=== PATIENT | female | born 2000 | race Caucasian/White ===

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

== ENCOUNTER 2021-03-25 05:31 | Emergency (ER) | payer OTHER ==
[2021-03-25 05:36] VITALS: TEMP 98.6
[2021-03-25] MEDS ORDERED: ONDANSETRON 4 MG/2 ML VIAL IVP STA (05:46)
[2021-03-25] MEDS ORDERED: SODIUM CHLORIDE 0.9% 1,000 ML IV STA ×3 (05:46→06:40)
[2021-03-25] MEDS ORDERED: PANTOPRAZOLE 40 MG/10 ML VIAL IVP STA (05:46)
[2021-03-25] MEDS ORDERED: SODIUM CHLORIDE 0.9% 500 ML 500 ML IV STA (05:46)
[2021-03-25] MEDS ORDERED: KETOROLAC 15 MG/ML 1 ML VIAL IVP STA (05:47)
[2021-03-25] MEDS ORDERED: DICYCLOMINE 10 MG/ML 2 ML AMP IM STA (05:47)
--- NOTE | 2021-03-25 05:51 | ED ---
Nausea/Vomiting/Diarrhea HPI - General Source: patient, family, RN notes reviewed, old records reviewed Mode of arrival: ambulatory Limitations: no limitations - History of Present Illness MD complaint: nausea, vomiting, diarrhea, abdominal pain -: hour(s) (3) Description of Vomiting: watery, bilious Description of Diarrhea: mucous Associated Abdominal Pain: Yes Location: epigastric Radiation: none Severity: moderate Severity scale (1-10): 5 Quality: cramping Consistency: intermittent Improves with: none Worsens with: none Associated Symptoms: myalgias, loss of appetite, nausea/vomiting, weakness <El Stanley - Last Filed: 03/25/21 06:43> <Nahun García - Last Filed: 03/25/21 08:29> - General Chief complaint: Nausea/Vomiting/Diarrhea Stated complaint: Nausea, vomiting Time Seen by Provider: 03/25/21 05:46 - History of Present Illness Initial comments: This is a 20-year-old female to ER today for evaluation of persistent nausea vom iting. Patient is nausea vomiting and diarrhea for 3 days. Patient has inability to related to any current similar symptoms and has no family members with similar complaint. Patient denies any fevers. She does have some epigastric pain that is worse when she does vomit. Patient is no blood in her vomit or stool. Denies chance of she does have Implant. No other surgical history no medical history denies drugs or alcohol. No recent antibiotic use (El Stanley) - Related Data Home Medications Medication Instructions Recorded Confirmed No Known Home Medications 10/30/15 10/30/15 Allergies Allergy/AdvReac Type Severity Reaction Status Date / Time No Known Allergies Allergy Verified 03/25/21 05:36 Review of Systems ROS Other: All systems not noted in ROS Statement are negative. <El Stanley - Last Filed: 03/25/21 06:43> ROS Other: All systems not noted in ROS Statement are negative. <Nahun García - Last Filed: 03/25/21 08:29> ROS Statement: Those systems with pertinent positive or pertinent negative responses have been documented in the HPI. Past Medical History Past Medical History: No Reported History History of Any Multi-Drug Resistant Organisms: None Reported Past Surgical History: No Surgical Hx Reported Past Psychological History: No Psychological Hx Reported Smoking Status: Current some day smoker Past Alcohol Use History: None Reported Past Drug Use History: None Reported <El Stanley - Last Filed: 03/25/21 06:43> General Exam Limitations: no limitations General appearance: alert, in no apparent distress Head exam: Present: atraumatic, normocephalic, normal inspection Eye exam: Present: normal appearance, PERRL, EOMI. Absent: scleral icterus, conjunctival injection, periorbital swelling ENT exam: Present: normal exam, mucous membranes moist Neck exam: Present: normal inspection. Absent: tenderness, meningismus, lymphadenopathy Respiratory exam: Present: normal lung sounds bilaterally. Absent: respiratory distress, wheezes, rales, rhonchi, stridor Cardiovascular Exam: Present: normal rhythm, tachycardia, normal heart sounds. Absent: systolic murmur, diastolic murmur, rubs, gallop, clicks GI/Abdominal exam: Present: soft, normal bowel sounds. Absent: distended, tenderness, guarding, rebound, rigid Extremities exam: Present: normal inspection, full ROM, normal capillary refill. Absent: tenderness, pedal edema, joint swelling, calf tenderness Back exam: Present: normal inspection Neurological exam: Present: alert, oriented X3, CN II-XII intact Psychiatric exam: Present: normal affect, normal mood Skin exam: Present: warm, dry, intact, normal color. Absent: rash <El Stanley - Last Filed: 03/25/21 06:43> Course <El Stanley - Last Filed: 03/25/21 06:43> Vital Signs 03/25/21 03/25/21 03/25/21 05:32 06:18 06:58 Temperature 98.6 F Pulse Rate 122 H 76 86 Respiratory 22 18 18 Rate Blood Pressure 118/73 105/61 108/72 O2 Sat by Pulse 97 99 100 Oximetry 03/25/21 03/25/21 03/25/21 07:34 08:10 08:24 Temperature 98.6 F Pulse Rate 81 71 71 Respiratory 16 16 16 Rate Blood Pressure 122/63 106/76 106/76 O2 Sat by Pulse 97 97 97 Oximetry - Reevaluation(s) Reevaluation #1: 03/25/21 06:07 Medical records reviewed (El Stanley) Medical Decision Making - Lab Data Result diagrams: 03/25/21 05:57 03/25/21 05:57 <El Stanley - Last Filed: 03/25/21 06:43> - Lab Data Result diagrams: 03/25/21 05:57 03/25/21 05:57 - Radiology Data Radiology results: report reviewed (Computed tomography scan of the abdomen pelvis shows no acute process) <Nahun García - Last Filed: 03/25/21 08:29> - Medical Decision Making Patient reevaluated and reexamined by myself, Dr. García. Patient resting comfortably in bed. Abdomen soft and nontender. Patient updated on results. Patient is tolerating ice chips. (Nahun García) - Lab Data Lab Results 03/25/21 03/25/21 03/25/21 Range/Units 05:57 05:57 05:57 WBC 9.9 (4.0-11.0) k/uL RBC 4.89 (3.80-5.40) m/uL Hgb 15.3 (11.4-16.0) gm/dL Hct 42.5 (34.0-46.0) % MCV 86.8 (80.0-100.0) fL MCH 31.3 (25.0-35.0) pg MCHC 36.1 (31.0-37.0) g/dL RDW 12.0 (11.5-15.5) % Plt Count 239 (150-450) k/uL MPV 7.5 Neutrophils % 52 % Lymphocytes % 31 % Monocytes % 6 % Eosinophils % 8 % Basophils % 1 % Neutrophils # 5.1 (1.3-7.7) k/uL Lymphocytes # 3.1 (1.0-4.8) k/uL Monocytes # 0.6 (0-1.0) k/uL Eosinophils # 0.8 H (0-0.7) k/uL Basophils # 0.1 (0-0.2) k/uL Sodium 139 (137-145) mmol/L Potassium 3.8 (3.5-5.1) mmol/L Chloride 105 (98-107) mmol/L Carbon Dioxide 21 L (22-30) mmol/L Anion Gap 13 mmol/L BUN 13 (7-17) mg/dL Creatinine 0.70 (0.52-1.04) mg/dL Est GFR (CKD-EPI)AfAm >90 (>60 ml/min/1.73 sqM) Est GFR (CKD-EPI)NonAf >90 (>60 ml/min/1.73 sqM) Glucose 95 (74-99) mg/dL Plasma Lactic Acid Bo (0.7-2.0) mmol/L Calcium 10.0 (8.4-10.2) mg/dL Phosphorus 4.2 (2.5-4.5) mg/dL Magnesium 2.0 (1.6-2.3) mg/dL Total Bilirubin 1.0 (0.2-1.3) mg/dL AST 28 (14-36) U/L ALT 18 (4-34) U/L Alkaline Phosphatase 86 (38-126) U/L Creatine Kinase 380 H (30-135) U/L Total Protein 8.0 (6.3-8.2) g/dL Albumin 4.9 (3.5-5.0) g/dL Lipase (23-300) U/L Urine Color Yellow Urine Appearance Cloudy H (Clear) Urine pH 5.5 (5.0-8.0) Ur Specific [place] 1.030 (1.001-1.035) Urine Protein Trace H (Negative) Urine Glucose (UA) Negative (Negative) Urine Ketones 2+ H (Negative) Urine Blood Negative (Negative) Urine Nitrite Negative (Negative) Urine Bilirubin 1+ H (Negative) Urine Urobilinogen 2.0 (<2.0) mg/dL Ur Leukocyte Esterase Small H (Negative) Urine RBC 2 (0-5) /hpf Urine WBC 5 (0-5) /hpf Ur Squamous Epith Cells 6 H (0-4) /hpf Amorphous Sediment Occasional H (None) /hpf Hyaline Casts 1 (0-2) /lpf Urine Mucus Many H (None) /hpf Urine HCG, Qual (Not Detectd) C. difficile Tox (PCR) 03/25/21 03/25/21 03/25/21 Range/Units 05:57 05:57 05:57 WBC (4.0-11.0) k/uL RBC (3.80-5.40) m/uL Hgb (11.4-16.0) gm/dL Hct (34.0-46.0) % MCV (80.0-100.0) fL MCH (25.0-35.0) pg MCHC (31.0-37.0) g/dL RDW (11.5-15.5) % Plt Count (150-450) k/uL MPV Neutrophils % % Lymphocytes % % Monocytes % % Eosinophils % % Basophils % % Neutrophils # (1.3-7.7) k/uL Lymphocytes # (1.0-4.8) k/uL Monocytes # (0-1.0) k/uL Eosinophils # (0-0.7) k/uL Basophils # (0-0.2) k/uL Sodium (137-145) mmol/L Potassium (3.5-5.1) mmol/L Chloride (98-107) mmol/L Carbon Dioxide (22-30) mmol/L Anion Gap mmol/L BUN (7-17) mg/dL Creatinine (0.52-1.04) mg/dL Est GFR (CKD-EPI)AfAm (>60 ml/min/1.73 sqM) Est GFR (CKD-EPI)NonAf (>60 ml/min/1.73 sqM) Glucose (74-99) mg/dL Plasma Lactic Acid Bo 1.0 (0.7-2.0) mmol/L Calcium (8.4-10.2) mg/dL Phosphorus (2.5-4.5) mg/dL Magnesium (1.6-2.3) mg/dL Total Bilirubin (0.2-1.3) mg/dL AST (14-36) U/L ALT (4-34) U/L Alkaline Phosphatase (38-126) U/L Creatine Kinase (30-135) U/L Total Protein (6.3-8.2) g/dL Albumin (3.5-5.0) g/dL Lipase (23-300) U/L Urine Color Urine Appearance (Clear) Urine pH (5.0-8.0) Ur Specific [place] (1.001-1.035) Urine Protein (Negative) Urine Glucose (UA) (Negative) Urine Ketones (Negative) Urine Blood (Negative) Urine Nitrite (Negative) Urine Bilirubin (Negative) Urine Urobilinogen (<2.0) mg/dL Ur Leukocyte Esterase (Negative) Urine RBC (0-5) /hpf Urine WBC (0-5) /hpf Ur Squamous Epith Cells (0-4) /hpf Amorphous Sediment (None) /hpf Hyaline Casts (0-2) /lpf Urine Mucus (None) /hpf Urine HCG, Qual Not Detected (Not Detectd) C. difficile Tox (PCR) Not Detected 03/25/21 Range/Units 05:57 WBC (4.0-11.0) k/uL RBC (3.80-5.40) m/uL Hgb (11.4-16.0) gm/dL Hct (34.0-46.0) % MCV (80.0-100.0) fL MCH (25.0-35.0) pg MCHC (31.0-37.0) g/dL RDW (11.5-15.5) % Plt Count (150-450) k/uL MPV Neutrophils % % Lymphocytes % % Monocytes % % Eosinophils % % Basophils % % Neutrophils # (1.3-7.7) k/uL Lymphocytes # (1.0-4.8) k/uL Monocytes # (0-1.0) k/uL Eosinophils # (0-0.7) k/uL Basophils # (0-0.2) k/uL Sodium (137-145) mmol/L Potassium (3.5-5.1) mmol/L Chloride (98-107) mmol/L Carbon Dioxide (22-30) mmol/L Anion Gap mmol/L BUN (7-17) mg/dL Creatinine (0.52-1.04) mg/dL Est GFR (CKD-EPI)AfAm (>60 ml/min/1.73 sqM) Est GFR (CKD-EPI)NonAf (>60 ml/min/1.73 sqM) Glucose (74-99) mg/dL Plasma Lactic Acid Bo (0.7-2.0) mmol/L Calcium (8.4-10.2) mg/dL Phosphorus (2.5-4.5) mg/dL Magnesium (1.6-2.3) mg/dL Total Bilirubin (0.2-1.3) mg/dL AST (14-36) U/L ALT (4-34) U/L Alkaline Phosphatase (38-126) U/L Creatine Kinase (30-135) U/L Total Protein (6.3-8.2) g/dL Albumin (3.5-5.0) g/dL Lipase 58 (23-300) U/L Urine Color Urine Appearance (Clear) Urine pH (5.0-8.0) Ur Specific [place] (1.001-1.035) Urine Protein (Negative) Urine Glucose (UA) (Negative) Urine Ketones (Negative) Urine Blood (Negative) Urine Nitrite (Negative) Urine Bilirubin (Negative) Urine Urobilinogen (<2.0) mg/dL Ur Leukocyte Esterase (Negative) Urine RBC (0-5) /hpf Urine WBC (0-5) /hpf Ur Squamous Epith Cells (0-4) /hpf Amorphous Sediment (None) /hpf Hyaline Casts (0-2) /lpf Urine Mucus (None) /hpf Urine HCG, Qual (Not Detectd) C. difficile Tox (PCR) Disposition Is patient prescribed a controlled substance at d/c from ED?: No <El Stanley - Last Filed: 03/25/21 06:43> Is patient prescribed a controlled substance at d/c from ED?: No <Nahun García - Last Filed: 03/25/21 08:29> Clinical Impression: Dehydration, Gastroenteritis Disposition: HOME SELF-CARE Condition: Good Instructions (If sedation given, give patient instructions): Acute Nausea and Vomiting (ED), Acute Diarrhea (ED) Referrals: None,Stated [Primary Care Provider] - 1-2 days
[2021-03-25 06:23] LABS: Basophils # (A) 0.1 k/uL (0-0.2); Basophils % (A) 1 %; Eosinophils # (A) 0.8 k/uL (0-0.7); Eosinophils % (A) 8 %; HCT 42.5 % (34.0-46.0); HGB 15.3 gm/dL (11.4-16.0); Lymphocytes # (A) 3.1 k/uL (1.0-4.8); Lymphocytes % (A) 31 %; MCH 31.3 pg (25.0-35.0); MCHC 36.1 g/dL (31.0-37.0); MCV 86.8 fL (80.0-100.0); Mean Platelet Volume 7.5; Monocytes # (A) 0.6 k/uL (0-1.0); Monocytes % (A) 6 %; Neutrophils # (A) 5.1 k/uL (1.3-7.7); Neutrophils % (A) 52 %; Platelet Count 239 k/uL (150-450); RBC 4.89 m/uL (3.80-5.40); WBC 9.9 k/uL (4.0-11.0)
[2021-03-25 06:35] LABS: Amorphous Sediment,Urine Occasional /hpf; Appearance,Urine Cloudy (Clear); Bilirubin,Urine 1+ (Negative); Blood,Urine Negative (Negative); Color,Urine Yellow; Glucose,Urine (UA) Negative (Negative); Hyaline Casts,Urine 1 /lpf (0-2); Ketones,Urine 2+ (Negative); Leukocyte Esterase,Urine Small (Negative); Mucus,Urine Many /hpf; Nitrite,Urine Negative (Negative); PH, Urine 5.5 (5.0-8.0); Protein,Urine Trace (Negative); RBC,Urine 2 /hpf (0-5); Squamous Epithelial Cell,Urine 6 /hpf (0-4); WBC,Urine 5 /hpf (0-5)
[2021-03-25 06:40] LABS: ALT 18 U/L (4-34); AST 28 U/L (14-36); African American GFR (CKD) >90 (>60 ml/min/1.73 sqM); Albumin 4.9 g/dL (3.5-5.0); Alkaline Phosphatase 86 U/L (38-126); Anion Gap 13 mmol/L; Blood Urea Nitrogen 13 mg/dL (7-17); Carbon Dioxide 21 mmol/L (22-30); Chloride 105 mmol/L (98-107); Creatine Kinase 380 U/L (30-135); Glucose 95 mg/dL (74-99); Non-African American GFR(CKD) >90 (>60 ml/min/1.73 sqM); Phosphorus 4.2 mg/dL (2.5-4.5); Potassium 3.8 mmol/L (3.5-5.1); Sodium 139 mmol/L (137-145)
[2021-03-25] MEDS ORDERED: DIPHENOX-ATROP STARTER PACK 8 TAB BTL PO STA (06:42)
[2021-03-25] MEDS ORDERED: ONDANSETRON ODT 4 MG TAB PO STA (06:42)
[2021-03-25] MEDS ORDERED: ONDANSETRON 4 MG ODT STARTER PACK 2 TAB BTL PO STA (06:43)
[2021-03-25] MEDS ORDERED: MORPHINE SULFATE 4 MG/ML SYRINGE IVP STA (06:47)
[2021-03-25 07:35] VITALS: RESP 16
--- NOTE | 2021-03-25 07:51 | CT ---
EXAMINATION TYPE: CT abdomen pelvis w con DATE OF EXAM: 03/25/2021 HISTORY: Upper abdominal pain with nausea vomiting and diarrhea for [address] DLP: 633.3mGycm Automated Exposure Control for Dose Reduction was Utilized. CONTRAST: CT scan of the abdomen and pelvis is performed without oral but with IV Contrast, patient injected wi th 100 mL of Isovue 300. COMPARISON: None. FINDINGS: LUNG BASES: No significant abnormality is appreciated. LIVER/GB: No significant abnormality is appreciated. PANCREAS: No significant abnormality is seen. SPLEEN: No significant abnormality is seen. ADRENALS: No significant abnormality is seen. KIDNEYS: No significant abnormality is seen. BOWEL: Suboptimal evaluation of bowel without enteric contrast. No suspicious small or large bowel di latation is seen. Stomach is poorly distended and suboptimally evaluated. Low-lying cecum into the ri ght pelvis noted. UTERUS/ADNEXA: Anteverted uterus projects to left of midline. Both ovaries seen and within normal de leon its in size. LYMPH NODES: No greater than 1cm abdominal or pelvic lymph nodes are appreciated. OSSEOUS STRUCTURES: No significant abnormality is seen. OTHER: No significant additional abnormality is seen. IMPRESSION: No bowel obstruction. No acute finding is identified.
[2021-03-25 08:11] VITALS: BP 106/76; PULSE 71
== END 2021-03-25 08:25 | disposition home or self-care (01) ==
LOC: EC 05:31
DX: E86.0 Dehydration (principal); K52.9 Noninfective gastroenteritis and colitis, unspecified; F17.200 Nicotine dependence, unspecified, uncomplicated
CPT/HCPCS: 36415; 80053; 82550; 83605; 83690; 83735; 84100; 85025; 81001; 81025; 87493; 74177; 99284; 96374; 96375; 96372; 96361; J2270; J0500; J2405; J1885; S0119; C9113; Q9967

== ENCOUNTER 2021-10-01 00:55 | Inpatient (IN) | payer MEDICAID, OTHER ==
[2021-10-01 02:02] LABS: Appearance,Urine Clear (Clear); Bilirubin,Urine Negative (Negative); Blood,Urine Negative (Negative); Color,Urine Colorless; Glucose,Urine (UA) Negative (Negative); Ketones,Urine Negative (Negative); Leukocyte Esterase,Urine Negative (Negative); Nitrite,Urine Negative (Negative); Protein,Urine Negative (Negative); Specific Gravity,Urine 1.005 (1.001-1.035); Urobilinogen,Urine <2.0 mg/dL (<2.0)
--- NOTE | 2021-10-01 02:07 | ED ---
Overdose HPI - General Stated Complaint: Overdose Time Seen by Provider: 10/01/21 01:09 Source: patient Mode of arrival: ambulatory - History of Present Illness Initial Comments: This patient is a 21-year-old woman who presents to be evaluated after taking a total of 9 tablets 0.25 mg Xanax. The patient states that she had just one to be unconscious. She states that she has been depressed and she just feels better when she is sleeping. The patient denies suicidal ideation. She does state she has had some depression that she doesn't seem to be doing much in her life right now. Complaint: intentional overdose -: hour(s) Intent: want to go to sleep How Overdose Was Discovered: called family/friend Context: Intentional Overdose: other Associated Symptoms: depression Treatments Prior to Arrival: none - Related Data Home Medications Medication Instructions Recorded Confirmed No Known Home Medications 10/30/15 10/30/15 Allergies Allergy/AdvReac Type Severity Reaction Status Date / Time No Known Allergies Allergy Verified 10/01/21 01:04 Review of Systems ROS Statement: Those systems with pertinent positive or pertinent negative responses have been documented in the HPI. ROS Other: All systems not noted in ROS Statement are negative. Constitutional: Denies: fever Respiratory: Denies: cough, dyspnea Cardiovascular: Denies: chest pain, palpitations, syncope Gastrointestinal: Denies: abdominal pain, nausea, vomiting, diarrhea Genitourinary: Denies: dysuria, hematuria, abnormal menses Musculoskeletal: Denies: back pain Skin: Denies: rash Neurological: Denies: headache, weakness Psychiatric: Reports: depression. Denies: auditory hallucinations, visual hallucinations, homicidal thoughts, suicidal thoughts Past Medical History Past Medical History: No Reported History History of Any Multi-Drug Resistant Organisms: None Reported Past Surgical History: No Surgical Hx Reported Past Psychological History: Anxiety, Depression, Panic Disorder Smoking Status: Current some day smoker Past Alcohol Use History: None Reported Past Drug Use History: None Reported General Exam General appearance: alert, in no apparent distress Head exam: Present: atraumatic, normocephalic Eye exam: Present: normal appearance, PERRL. Absent: scleral icterus, conjunctival injection ENT exam: Present: normal oropharynx, mucous membranes moist Neck exam: Present: normal inspection Respiratory exam: Present: normal lung sounds bilaterally. Absent: respiratory distress, wheezes, rales, rhonchi, stridor Cardiovascular Exam: Present: regular rate, normal rhythm, normal heart sounds. Absent: systolic murmur, diastolic murmur, rubs, gallop GI/Abdominal exam: Present: soft. Absent: distended, tenderness, guarding, rebound, rigid, mass, pulsatile mass Extremities exam: Present: normal inspection, normal capillary refill. Absent: pedal edema, calf tenderness Back exam: Present: normal inspection. Absent: CVA tenderness (R), CVA tenderness (L) Neurological exam: Present: alert Psychiatric exam: Present: depressed. Absent: agitated, anxious, flat affect, manic, homicidal ideation, suicidal ideation Skin exam: Present: warm, dry, intact, normal color. Absent: rash Course Vital Signs 10/01/21 01:04 Temperature 98.5 F Pulse Rate 102 H Respiratory 15 Rate Blood Pressure 119/79 O2 Sat by Pulse 98 Oximetry Medical Decision Making - Lab Data Lab Results 10/01/21 10/01/21 Range/Units 01:19 01:19 Urine Color Colorless Urine Appearance Clear (Clear) Urine pH 7.0 (5.0-8.0) Ur Specific [place] 1.005 (1.001-1.035) Urine Protein Negative (Negative) Urine Glucose (UA) Negative (Negative) Urine Ketones Negative (Negative) Urine Blood Negative (Negative) Urine Nitrite Negative (Negative) Urine Bilirubin Negative (Negative) Urine Urobilinogen <2.0 (<2.0) mg/dL Ur Leukocyte Esterase Negative (Negative) Urine HCG, Qual Not Detected (Not Detectd) Disposition Referrals: Jaqueline Johnston MD [Primary Care Provider] - 1-2 days
[2021-10-01 02:40] LABS: Basophils % (A) 0 %; Eosinophils % (A) 0 %; HGB 13.7 gm/dL (11.4-16.0); Lymphocytes # (A) 1.1 k/uL (1.0-4.8); Lymphocytes % (A) 22 %; MCH 31.1 pg (25.0-35.0); MCHC 33.5 g/dL (31.0-37.0); MCV 92.8 fL (80.0-100.0); Mean Platelet Volume 7.2; Monocytes # (A) 0.4 k/uL (0-1.0); Monocytes % (A) 8 %; Neutrophils # (A) 3.3 k/uL (1.3-7.7); Neutrophils % (A) 67 %; Platelet Count 171 k/uL (150-450); RBC 4.42 m/uL (3.80-5.40); RDW 12.8 % (11.5-15.5)
[2021-10-01 02:56] LABS: ALT 13 U/L (4-34); AST 19 U/L (14-36); Acetaminophen <10.0 ug/mL; African American GFR (CKD) >90 (>60 ml/min/1.73 sqM); Albumin 4.1 g/dL (3.5-5.0); Alkaline Phosphatase 56 U/L (38-126); Anion Gap 9 mmol/L; Blood Urea Nitrogen 11 mg/dL (7-17); Calcium 9.2 mg/dL (8.4-10.2); Carbon Dioxide 23 mmol/L (22-30); Chloride 104 mmol/L (98-107); Glucose 92 mg/dL (74-99); Non-African American GFR(CKD) >90 (>60 ml/min/1.73 sqM); Potassium 3.7 mmol/L (3.5-5.1); Sodium 136 mmol/L (137-145); Total Bilirubin 0.4 mg/dL (0.2-1.3); Total Protein 6.9 g/dL (6.3-8.2)
[2021-10-01] MEDS ORDERED: MAGNESIUM HYDROXIDE 2,400 MG/10 ML CUP PO PRN (05:35)
[2021-10-01] MEDS ORDERED: ACETAMINOPHEN TAB 325 MG TAB PO PRN (05:35)
[2021-10-01] MEDS ORDERED: MAG HYDROX/AL HYDROX/SIMETH 30 ML CUP PO PRN (05:35)
[2021-10-01 06:07] LABS: Amphetamine Screen,Urine Not Detected (NotDetected); Barbiturate Screen,Urine Not Detected (NotDetected); Benzodiazepines Screen,Urine Detected (NotDetected); Cocaine Screen,Urine Not Detected (NotDetected); Methadone Screen, Urine Not Detected (NotDetected); Opiate Screen,Urine Not Detected (NotDetected); Oxycodone Screen, Urine Not Detected (NotDetected); Phencyclidine Screen,Urine Not Detected (NotDetected); Tricyclic Antidepressant,Urine Not Detected (NotDetected); Urn Cannabinoid Scrn Detected (NotDetected)
--- NOTE | 2021-10-01 11:19 | P.MDCNMH ---
History of Present Illness H&P Date: 10/01/21 HISTORY OF PRESENT ILLNESS This is a 21-year-old female patient of Dr. Johnston usually follows with [facility] in the office with PMH of depression and anxiety disorder, active vein pain and daily marijuana use. Patient denies having any previous medical history. Dates that she follows with [facility] and sees her psychiatrist every 6-8 weeks and counselor every other week. She states she is not happy with her [employer] and does not want to go there anymore. She also gives history that she is currently living with her [id number] and her sis ter-in-law's . She had an argument with a friend and had stated "this is the last time you'll hear from me." She also states that she took 9 Xanax 0.5 mg but denies being suicidal. Patient presented to [facility] emergency for evaluation. She was found to be afebrile, heart rate 102, pressure 119/79, pulse ox 90% on room air. CBC and CMP unremarkable. Urinalysis unremarkable. HCG nondetected. Urine drug screen was positive for benzodiazepines and marijuana. Acetaminophen level less than 10. Coronavirus PCR not detected. Patient is seen today on the mental health unit. Patient denies any medical concerns and she also denies that she is suicidal. REVIEW OF SYSTEMS Constitutional: No fever, no chills, no night sweats. No weight change. No weakness, fatigue or lethargy. No daytime sleepiness. EENT: No headache. No blurred vision or double vision, no loss of vision. No loss of Hearing, no ringing in the ears, no dizziness. No nasal drainage or congestion. No epistaxis. No sore throat. Lungs: No shortness of breath, cough, no sputum production. No wheezing. Cardiovascular: No chest pain, no lower extremity edema. No palpitations. No paroxysmal nocturnal dyspnea. No orthopnea. No lightheadedness or dizziness. No syncopal episodes. Abdominal: No abdominal pain. No nausea, vomiting. No diarrhea. No constipati on. No bloody or tarry stools. No loss of appetite. Genitourinary: No dysuria, increased frequency, urgency. No urinary retention. Musculoskeletal: No myalgias. No muscle weakness, no gait dysfunction, no frequent falls. No back pain. No neck pain. Integumentary: No wounds, no lesions. No rash or pruritus. No unusual bruising. No change in hair or nails. Neurologic: No aphasia. No facial droop. No change in mentation. No head injury. No headache. No paralysis. No paresthesia. Psychiatric: History of depression. History of anxiety. No mood swings. Endocrine: No abnormal blood sugars. No weight change. SOCIAL HISTORY Patient denies use of tobacco but does Vape every day Lantus smokes marijuana every day. She denies any other drug use. She sometimes drinks alcohol. 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 She does not have any children. She lives with her [id number] and her [id number]'s . FAMILY HISTORY Mother is alive in her 40s with no major medical problems. Father is alive in his 40s with history of asthma. Patient has 3 siblings and one brother has diabetes. PHYSICAL EXAMINATION Gen: This is a 21-year-old female. Patient is cooperative. She has flat affect, makes eye contact. She does not appear to be in any acute dist ress. HEENT: Head is atraumatic, normocephalic. Pupils equal, round. Sclerae is anicteric. NECK: Supple. No JVD. No lymphadenopathy. No thyromegaly. LUNGS: Clear to auscultation. No wheezes or rhonchi. No intercostal retractions. HEART: Regular rate and rhythm. No murmur. ABDOMEN: Soft. Bowel sounds are present. No masses. No tenderness. EXTREMITIES: No pedal edema. No calf tenderness. NEUROLOGICAL: Patient is awake, alert and oriented x3. Cranial nerves 2 through 12 are grossly intact. ASSESSMENT AND PLAN 1. Overdose with 9 Xanax 0.5 mg, medically stable. 2. Recurrent depression and generalized anxiety disorder. Continue plan per psychiatry. 3. Daily vaping and daily marijuana use. 4. COVID-19 testing negative. Patient has been hospitalized during a pandemic. DISCHARGE PLAN Home. Follow-up with Dr. Johnston in 1 week after discharge from the mental health unit. Impression and plan of care have been directed as dictated by the signing physician. Asiha Cates nurse practitioner acting as scribe for signing physician. Past Medical History Past Medical History: No Reported History History of Any Multi-Drug Resistant Organisms: None Reported Past Surgical History: No Surgical Hx Reported Past Psychological History: Anxiety, Depression, Panic Disorder Smoking Status: Never smoker Past Alcohol Use History: None Reported Past Drug Use History: Marijuana Medications and Allergies Home Medications Medication Instructions Recorded Confirmed Type ALPRAZolam [Xanax] 0.25 mg PO BID PRN 10/01/21 10/01/21 History Ethinyl Estradiol/Drospirenone 1 tab PO DAILY 10/01/21 10/01/21 History [Leslye 28 Tablet] FLUoxetine HCL [PROzac] 40 mg PO HS 10/01/21 10/01/21 History busPIRone HCl [Buspar] 10 mg PO BID 10/01/21 10/01/21 History Allergies Allergy/AdvReac Type Severity Reaction Status Date / Time No Known Allergies Allergy Verified 10/01/21 05:38 Physical Exam Vitals: Vital Signs Temp Pulse Pulse Resp BP BP Pulse Ox 10/01/21 05:41 97.6 F 71 14 104/57 97 10/01/21 04:31 77 20 104/71 98 10/01/21 01:04 98.5 F 102 H 15 119/79 98 Intake and Output 09/30/21 10/01/21 10/01/21 22:59 06:59 14:59 Other: Weight 55.792 kg Cranial Nerve Examination - Cranial Nerves Cranial Nerve I- Olfactory: Intact () Cranial Nerve II- Optic: Intact () Cranial Nerve III- Oculomotor: Intact () Cranial Nerve IV- Trochlear: Intact () Cranial Nerve V- Trigeminal: Intact () Cranial Nerve - Abducens: Intact () Cranial Nerve VII- Facial: Intact () Cranial Nerve VIII- Auditory: Intact Cranial Nerve IX- Glossopharyngeal: Intact Cranial Nerve X- Vagus: Intact Cranial Nerve XI- Accessory: Intact Cranial Nerve XII- Hypoglossal: Intact Results CBC & Chem 7: 10/01/21 02:16 10/01/21 02:16 Labs: Abnormal Lab Results - Last 24 Hours (Table) 10/01/21 10/01/21 Range/Units 01:30 02:16 Sodium 136 L (137-145) mmol/L U Benzodiazepines Scrn Detected H (NotDetected) U Marijuana (THC) Screen Detected H (NotDetected)
--- NOTE | 2021-10-01 14:11 | P.HP ---
Psychiatric H&P - . H&P Date: 10/01/21 History & Physical: Allergies Allergy/AdvReac Type Severity Reaction Status Date / Time No Known Allergies Allergy Verified 10/01/21 05:38 Vital Signs Temp 97.6 F 10/01/21 05:41 Pulse 71 10/01/21 05:41 Resp 14 10/01/21 05:41 BP 104/57 10/01/21 05:41 Pulse Ox 97 10/01/21 05:41 Intake & Output 09/30/21 10/01/21 10/01/21 18:59 06:59 18:59 Weight 55.792 kg Laboratory Last Values WBC 5.0 k/uL (4.0-11.0) 10/01/21 02:16 RBC 4.42 m/uL (3.80-5.40) 10/01/21 02:16 Hgb 13.7 gm/dL (11.4-16.0) 10/01/21 02:16 Hct 41.0 % (34.0-46.0) 10/01/21 02:16 MCV 92.8 fL (80.0-100.0) 10/01/21 02:16 MCH 31.1 pg (25.0-35.0) 10/01/21 02:16 MCHC 33.5 g/dL (31.0-37.0) 10/01/21 02:16 RDW 12.8 % (11.5-15.5) 10/01/21 02:16 Plt Count 171 k/uL (150-450) 10/01/21 02:16 MPV 7.2 10/01/21 02:16 Neutrophils % 67 % 10/01/21 02:16 Lymphocytes % 22 % 10/01/21 02:16 Monocytes % 8 % 10/01/21 02:16 Eosinophils % 0 % 10/01/21 02:16 Basophils % 0 % 10/01/21 02:16 Neutrophils # 3.3 k/uL (1.3-7.7) 10/01/21 02:16 Lymphocytes # 1.1 k/uL (1.0-4.8) 10/01/21 02:16 Monocytes # 0.4 k/uL (0-1.0) 10/01/21 02:16 Eosinophils # 0.0 k/uL (0-0.7) 10/01/21 02:16 Basophils # 0.0 k/uL (0-0.2) 10/01/21 02:16 Sodium 136 mmol/L (137-145) L 10/01/21 02:16 Potassium 3.7 mmol/L (3.5-5.1) 10/01/21 02:16 Chloride 104 mmol/L (98-107) 10/01/21 02:16 Carbon Dioxide 23 mmol/L (22-30) 10/01/21 02:16 Anion Gap 9 mmol/L 10/01/21 02:16 BUN 11 mg/dL (7-17) 10/01/21 02:16 Creatinine 0.59 mg/dL (0.52-1.04) 10/01/21 02:16 Est GFR (CKD-EPI)AfAm >90 (>60 ml/min/1.73 sqM) 10/01/21 02:16 Est GFR (CKD-EPI)NonAf >90 (>60 ml/min/1.73 sqM) 10/01/21 02:16 Glucose 92 mg/dL (74-99) 10/01/21 02:16 Calcium 9.2 mg/dL (8.4-10.2) 10/01/21 02:16 Total Bilirubin 0.4 mg/dL (0.2-1.3) 10/01/21 02:16 AST 19 U/L (14-36) 10/01/21 02:16 ALT 13 U/L (4-34) 10/01/21 02:16 Alkaline Phosphatase 56 U/L (38-126) 10/01/21 02:16 Total Protein 6.9 g/dL (6.3-8.2) 10/01/21 02:16 Albumin 4.1 g/dL (3.5-5.0) 10/01/21 02:16 Urine Color Colorless 10/01/21 01:19 Urine Appearance Clear (Clear) 10/01/21 01:19 Urine pH 7.0 (5.0-8.0) 10/01/21 01:19 Ur Specific [place] 1.005 (1.001-1.035) 10/01/21 01:19 Urine Protein Negative (Negative) 10/01/21 01:19 Urine Glucose (UA) Negative (Negative) 10/01/21 01:19 Urine Ketones Negative (Negative) 10/01/21 01:19 Urine Blood Negative (Negative) 10/01/21 01:19 Urine Nitrite Negative (Negative) 10/01/21 01:19 Urine Bilirubin Negative (Negative) 10/01/21 01:19 Urine Urobilinogen <2.0 mg/dL (<2.0) 10/01/21 01:19 Ur Leukocyte Esterase Negative (Negative) 10/01/21 01:19 Urine HCG, Qual Not Detected (Not Detectd) 10/01/21 01:19 Urine Opiates Screen Not Detected (NotDetected) 10/01/21 01:30 Ur Oxycodone Screen Not Detected (NotDetected) 10/01/21 01:30 Urine Methadone Screen Not Detected (NotDetected) 10/01/21 01:30 Ur Propoxyphene Screen Not Detected (NotDetected) 10/01/21 01:30 Acetaminophen <10.0 ug/mL 10/01/21 02:16 Ur Barbiturates Screen Not Detected (NotDetected) 10/01/21 01:30 U Tricyclic Antidepress Not Detected (NotDetected) 10/01/21 01:30 Ur Phencyclidine Scrn Not Detected (NotDetected) 10/01/21 01:30 Ur Amphetamines Screen Not Detected (NotDetected) 10/01/21 01:30 U Methamphetamines Scrn Not Detected (NotDetected) 10/01/21 01:30 U Benzodiazepines Scrn Detected (NotDetected) H 10/01/21 01:30 Urine Cocaine Screen Not Detected (NotDetected) 10/01/21 01:30 U Marijuana (THC) Screen Detected (NotDetected) H 10/01/21 01:30 Coronavirus (PCR) Not Detected (Not Detectd) 10/01/21 04:30 10/01/21 14:05 IDENTIFYING DATA: Patient is a 21-year-old female, she currently lives with her fianc's family has no kids and 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 This apparently was a suicide attempt. Patient was petitioned by her friend who expressed concerned about patient's safety and depression and suicidal thoughts. Patient was admitted involuntarily however signed voluntary on the unit. She appeared fairly constricted and had a depressed affect. She states that she is being prescribed Xanax and overdosed on it. She states that she's been feeling very overwhelmed and is not liking her job. She states that she feels "numb" and was describing depression and significant anxiety. She states that she has been on medications in the past including Zoloft and Prozac. She states that she overdosed on the medications and then extended her friend telling her "this will be the last time we'll hear from me" and then went to sleep. She states that her friend came over and tried to wake her up and called the ambulance. She states that her sleep has been fair however appetite has been poor. Patient denies any homicidal ideations intent or plan. She is admitting to ongoing suicidal thoughts however no intent or plan. At this time patient denies any auditory or visual hallucinations. Patient denies any flight of ideas racing thoughts and increased in goal directed behavior. Patient admits to using marijuana daily. She denies any other recreational drug use. PAST PSYCHIATRIC HISTORY: Patient states that she has a history of depression and anxiety. She claims that she is previously been on Zoloft, Prozac and BuSpar in the past. Patient denies any previous psychiatric hospitalizations. She claims that she follows up at [facility] with a nurse practitioner there. She claims that she did have an overdose suicide attempt when she is 16 years old. PMH:denies ALLERGIES: as per EMR CHEMICAL DEPENDENCY HISTORY: as per HPI FAMILY PSYCHIATRIC/SUBSTANCE USE HISTORY: States that her mother has depression and anxiety in father has some form of mental illness. SOCIAL HISTORY: Patient was born and raised in [facility] [facility] [place]. She states that she completed high school. She claims that she does not have a legal history. She states that she currently works at [employer] as a nurse's aide. She does not have any kids. She lives with her fibhargav's family in a house. MENTAL STATUS EXAM: General Appearance: Patient appears to be thin, unkempt hair, stated age is alert, directable, and attempts to cooperate. Patient appears to have poor hygiene and grooming. Behavior: Patient is seated without any agitated behavior. Constricted, affect. Speech: Patient's speech is fluent and nonpressured. Soft tone. [place] Mood/Affect: Patient reports their mood is depressed and anxious, affect is congruent and constricted. Suicidality/Homicidality: Patient denies having any homicidal ideation intent or plan. And admits to suicidal thoughts however no intent or plan. Perceptions: Patient denies any visual hallucinations and denies any auditory hallucinations Though content/process: There is no evidence of any delusional thought content and thought process is linear and goal-directed. Focused on her symptoms. Memory and concentration: AOX3, grossly intact for the purposes of this session. Can spell "WORLD" backwards Judgment and insight: poor STRENGTHS/WEAKNESSES: strength is that patient is resilient. Weakness is that patient has poor judgment and is impulsive INTELLECT: average IMPRESSIONS: Major depressive disorder, recurrent, severe without psychotic features Anxiety disorder unspecified Cannabis use disorder mild PLAN: -Patient is admitted under voluntary status to [facility]HU for stabilization of psychiatric symptoms and safety. Patient has signed adult voluntary form and medication consent and is placed in patient's chart. -Medications : Will start patient on Cymbalta 30 mg daily for mood/anxiety, Remeron 15 mg daily at bedtime for sleep/mood/appetite. -Ativan and Haldol PRN for agitation/aggression -Patient was counselled on substance abuse and desired to cut back on use -Patient was informed of the risks, benefits and side effects of the medication and patient verbally consented to taking the medications. Patient signed med consent form and was placed in chart. -Internal Medicine consult to perform medical evaluation and physical. -NRT - not needed as patient does not smoke -SW on board for discharge planning. Encourage patient to participate in groups to work on coping skills.
[2021-10-01] MEDS: DULoxetine HCL 30 MG CAPSULE.DR PO SCH (14:17)
[2021-10-01] MEDS: MIRTAZAPINE 15 MG TAB PO SCH (21:04)
[2021-10-02] MEDS: DULoxetine HCL 30 MG CAPSULE.DR PO SCH (09:31)
[2021-10-02] MEDS: LORazepam 0.5 MG TAB PO PRN (09:48)
[2021-10-02] MEDS: MIRTAZAPINE 15 MG TAB PO SCH (22:13)
[2021-10-03] MEDS ORDERED: DULoxetine HCL 60 MG CAPSULE.DR PO SCH (09:00)
[2021-10-03] MEDS: LORazepam 0.5 MG TAB PO PRN (09:33)
--- NOTE | 2021-10-03 12:05 | P.PN ---
Progress Note - Text Progress Note Date: 10/02/21 Interval History: Patient was seen in her room today and was directable and agreeable to speak w ith proposal lead writer in the office. [She claims that she is still feeling overwhelmed but states that she is feeling more optimistic today. She claims that she feels medications have been helping more with her depression however not so much with her anxiety. She described a panic attack earlier today and denied having any significant triggers. She states that she took an Ativan afterwards which helped calm it down. She claims that she feels that the Cymbalta has been helping and was agreeable to have it increased over the weekend. She describes a mild improvement in her insight and judgment. She claims that she has been attempting to call her family and speak with them which was been helping. Admits to some mild changes and improvement with her meds since yesterday. She states that she got around 8 hrs of sleep last night]. At this time patient denies any homical ideations, intent or plan. She claims that today she does not have any suicidal thoughts, no intent or plan. Patient denies any auditory, visual hallucinations and denies any paranoia or delusions. Patient denies any side effects from the medications and has been compliant with meds. Mental Status Exam: General Appearance: Patient appears to be thin, stated age is alert, directable, and attempts to cooperate. Patient appears to have improving hygiene and grooming. Behavior: Patient is seated without any agitated behavior. Constricted, improving mildly. Speech: Patient's speech is fluent and nonpressured. Soft tone. [place], improving mildly Mood/Affect: Patient reports their mood is anxious yet improving midlly, affect is congruent and constricted. Suicidality/Homicidality: Patient denies having any homicidal ideation intent or plan. And admits to suicidal thoughts however no intent or plan. Perceptions: Patient denies any visual hallucinations and denies any auditory hallucinations Though content/process: There is no evidence of any delusional thought content and thought process is linear and goal-directed. Memory and concentration: AOX3, grossly intact for the purposes of this session Judgment and insight: poor, improving mildly IMPRESSIONS: Major depressive disorder, recurrent, severe without psychotic features Anxiety disorder unspecified Cannabis use disorder mild Plan: -Patient continues to meet criteria for inpatient psychiatric admission for symptom stabilization and safety. Patient has signed [adult voluntary form and] [medication consent] and was placed in patient's chart. -Medications: Increased Cymbalta 60 mg daily for mood/anxiety with plan to increase to 90 mg daily on wednesday, Remeron 15 mg daily at bedtime for sleep/mood/appetite. added vistaril prn for anxiety -When necessary Ativan and Haldol for agitation/aggression. -NRT - not needed as patient does not smoke -SW on board for discharge planning. Encouraged the patient to participate in milieu. likely discharge early next week back home.
[2021-10-03] MEDS: MIRTAZAPINE 15 MG TAB PO SCH (21:02)
[2021-10-03] MEDS: hydrOXYzine pamoate 25 MG CAP PO PRN (21:02)
[2021-10-04] MEDS ORDERED: DULoxetine HCL 60 MG CAPSULE.DR PO SCH (09:00)
--- NOTE | 2021-10-04 14:21 | P.PN ---
Subjective Progress Note Date: 10/04/21 Principal diagnosis: Major depressive disorder recurrent severe without psychotic features Anxiety disorder unspecified Cannabis use disorder unspecified Benzodiazepine use disorder unspecified Subjective data: I'm just tired of feeling anxious all the time no matter what I do that I continue to feel shaky and nervous and nothing seems to help I took 9 Xanax tablets because I wanted to kill myself I just don't know what else to do Nobody seems to be able to help me Objective data: Patient continues to be negativistic projective angry and frustrated with self and others Affect remains at a mild anxiety Patient remains projective Insight into her problem is poor Self-esteem and confidence are poor Problem-solving skills are impaired Judgment and insight are impaired Patient denies any suicidal or homicidal ideations at this time Plan: Patient continues to meet criteria for inpatient psychiatric hospitalization and symptom stabilization and safety Continue current care and support Patient is currently on Cymbalta and Remeron. Other medications included Vistaril when necessary for anxiety Another option could also be gabapentin for anxiety as a scheduled dosage Continue current care and support Royal Leiva M.D. 10/04/2021 Objective - Vital Signs Vital signs: Vital Signs Temp 98.2 F 10/04/21 07:26 Pulse 108 H 10/04/21 07:26 Resp 16 10/03/21 06:40 BP 103/59 10/04/21 07:26 Pulse Ox 98 10/04/21 07:26 - Labs CBC & Chem 7: 10/01/21 02:16 10/01/21 02:16
[2021-10-04] MEDS: hydrOXYzine pamoate 25 MG CAP PO PRN (14:41)
[2021-10-04] MEDS: MIRTAZAPINE 15 MG TAB PO SCH (21:06)
[2021-10-05] MEDS: DULoxetine HCL 30 MG CAPSULE.DR PO SCH (08:25)
--- NOTE | 2021-10-05 11:44 | P.PN ---
Subjective Progress Note Date: 10/05/21 Principal diagnosis: Major depressive disorder recurrent severe without psychotic features Anxiety disorder unspecified Cannabis use disorder unspecified Benzodiazepine use disorder unspecified Subjective data: Patient was seen in the group room Patient continued to be busy with a coloring book and verbalized very little She remains shy and withdrawn Objective data: Patient continues to be negativistic projective angry and frustrated with self and others Affect remains at a mild anxiety Patient remains projective Insight into her problem is poor Self-esteem and confidence are poor Problem-solving skills are impaired Judgment and insight are impaired Patient denies any suicidal or homicidal ideations at this time Plan: Patient continues to meet criteria for inpatient psychiatric hospitalization and symptom stabilization and safety Continue current care and support Patient is currently on Cymbalta and Remeron. Other medications included Vistaril when necessary for anxiety Another option could also be gabapentin for anxiety as a scheduled dosage Continue current care and support Royal Leiva M.D. 10/05/2021 Objective - Vital Signs Vital signs: Vital Signs Temp 98.2 F 10/04/21 07:26 Pulse 108 H 10/04/21 07:26 Resp 16 10/03/21 06:40 BP 103/59 10/04/21 07:26 Pulse Ox 98 10/04/21 07:26 Intake & Output 10/04/21 10/05/21 10/05/21 18:59 06:59 18:59 Weight 55.792 kg 54.7 kg - Labs CBC & Chem 7: 10/01/21 02:16 10/01/21 02:16
[2021-10-05] MEDS: MIRTAZAPINE 15 MG TAB PO SCH (20:15)
[2021-10-06] MEDS: DULoxetine HCL 30 MG CAPSULE.DR PO SCH (08:16)
--- NOTE | 2021-10-06 09:54 | P.PN ---
Progress Note - Text Progress Note Date: 10/06/21 Interval History: Patient was seen sitting in on group today and was directable and agreeable to speak with radio news writer in the office. [She claims that she is still feeling overwhelmed and continues to endorse significant depression. She believes that her anxiety is still not under control and is still perseverating on suicidal thoughts. She states that she is trying to go to groups and participate as best she can. She states that she talk to her family at home and told them "I want to come home" and was asking radio news writer if she could. She states that she took the Vistaril over the weekend however said it minimal effects. She states that she is sleeping better at night however and has a fair appetite. She claims that she still having suicidal thoughts however no intent or plan. At this time patient denies any homical ideations, intent or plan. Patient denies any auditory, visual hallucinations and denies any paranoia or delusions. Patient denies any side effects from the medications and has been compliant with meds. Mental Status Exam: General Appearance: Patient appears to be thin, stated age is alert, directable, and attempts to cooperate. Patient appears to have improving hygiene and grooming. Behavior: Patient is seated without any agitated behavior. Constricted, improvi ng mildly. Tearful. Speech: Patient's speech is fluent and nonpressured. Soft tone. [place], improving mildly Mood/Affect: Patient reports their mood is depressed and anxious, affect is congruent and constricted. Suicidality/Homicidality: Patient denies having any homicidal ideation intent or plan. And admits to ongoing suicidal thoughts however no intent or plan. Perceptions: Patient denies any visual hallucinations and denies any auditory hallucinations Though content/process: There is no evidence of any delusional thought content and thought process is linear and goal-directed. [place] Memory and concentration: AOX3, grossly intact for the purposes of this session Judgment and insight: poor, improving mildly IMPRESSIONS: Major depressive disorder, recurrent, severe without psychotic features Anxiety disorder unspecified Cannabis use disorder mild Plan: -Patient continues to meet criteria for inpatient psychiatric admission for symptom stabilization and safety. Patient has signed [adult voluntary form and] [medication consent] and was placed in patient's chart. -Medications: Increased Cymbalta 60 mg BID for mood/anxiety. Remeron 15 mg daily at bedtime for sleep/mood/appetite. vistaril prn for anxiety. added lithium 150 mg bid for mood adjunct/suicidal thoughts. -When necessary Ativan and Haldol for agitation/aggression. -NRT - not needed as patient does not smoke -SW on board for discharge planning. Encouraged the patient to participate in milieu. likely discharge once patient is improving psychiatrically
[2021-10-06] MEDS: LITHIUM CARBONATE 150 MG CAP PO SCH ×2 (10:22→21:24)
[2021-10-06 14:41] VITALS: BMI 21.3
[2021-10-06] MEDS: HYDROCORTISONE 1% CREAM 30 GM TUBE TOPICAL PRN (15:47)
[2021-10-06] MEDS: MIRTAZAPINE 15 MG TAB PO SCH (21:24)
[2021-10-06] MEDS: DULoxetine HCL 60 MG CAPSULE.DR PO SCH (21:25)
[2021-10-07 07:20] VITALS: TEMP 98.1
[2021-10-07] MEDS: LITHIUM CARBONATE 150 MG CAP PO SCH (08:03)
[2021-10-07] MEDS: DULoxetine HCL 60 MG CAPSULE.DR PO SCH ×2 (08:03→20:51)
--- NOTE | 2021-10-07 10:01 | P.PN ---
Progress Note - Text Progress Note Date: 10/07/21 Interval History: Patient was seen sitting in on group today and was directable and agreeable to speak with justowriter operator in the office. Patient continues to be constricted in her affect initially however was shaking her legs repetitively during conversation. She continues to endorse severe anxiety and states that she feels that she is not getting any better. She is still having depression and was tearful today during the interview. She spoke about work and dreading going in however knows that she needs to do it for the money. She claims that no other job has helped her in the past and has been good for her. She continues to endorse ongoing thoughts of suicide. She claims that she does not have a specific plan to harm herself in the hospital. She states that she is sleeping better at night however and has a fair appetite. At this time patient denies any homical ideations, intent or plan. Patient denies any auditory, visual hallucinations and denies any paranoia or delusions. Patient denies any side effects from the medications and has been compliant with meds. Mental Status Exam: General Appearance: Patient appears to be thin, stated age is alert, directable, and attempts to cooperate. Patient appears to have improving hygiene and grooming. Behavior: Patient is seated without any agitated behavior. Constricted. Tearful. Legs were shaking. Speech: Patient's speech is fluent and nonpressured. Soft tone. [place], improving mildly Mood/Affect: Patient reports their mood is depressed and anxious, affect is congruent and constricted. Suicidality/Homicidality: Patient denies having any homicidal ideation intent or plan. And admits to ongoing suicidal thoughts however no intent or plan. Perceptions: Patient denies any visual hallucinations and denies any auditory hallucinations Though content/process: There is no evidence of any delusional thought content and thought process is linear and goal-directed. [place]. Perseverating on her anxiety. Memory and concentration: AOX3, grossly intact for the purposes of this session Judgment and insight: poor, improving mildly IMPRESSIONS: Major depressive disorder, recurrent, severe without psychotic features Anxiety disorder unspecified Cannabis use disorder mild Plan: -Patient continues to meet criteria for inpatient psychiatric admission for symptom stabilization and safety. Patient has signed [adult voluntary form and] [medication consent] and was placed in patient's chart. -Medications: Cymbalta 60 mg BID for mood/anxiety. Remeron 15 mg daily at bedtime for sleep/mood/appetite. Changed vistaril to 25 mg twice a day scheduled for anxiety. Increased lithium 300 mg bid for mood adjunct/suicidal thoughts. -When necessary Ativan and Haldol for agitation/aggression. -NRT - not needed as patient does not smoke -SW on board for discharge planning. Encouraged the patient to participate in milieu. likely discharge once patient is improving psychiatrically
[2021-10-07] MEDS: hydrOXYzine pamoate 25 MG CAP PO SCH ×2 (11:22→20:51)
--- NOTE | 2021-10-07 15:01 | P.PN ---
Progress Note - Text Progress Note Date: 10/03/21 Interval History: Patient was seen in the hallways and was directable and agreeable to speak with technical report writer in the office. She contineus to endorse depression and anxiety and states that she feels "the same" in terms of her mood. she contineus to focus on her job and negativity during the interaction. She describes a mild improvement in her insight and judgment. She claims that she has been attempting to call her family and speak with them. She states that she got around 7-8 hrs of sleep last night. At this time patient denies any homical ideations, intent or plan. She claims that today she does not have any suicidal thoughts, no intent or plan. Patient denies any auditory, visual hallucinations and denies any paranoia or delusions. Patient denies any side effects from the medications and has been compliant with meds. Mental Status Exam: General Appearance: Patient appears to be thin, stated age is alert, directable, and attempts to cooperate. Patient appears to have improving hygiene and grooming. Behavior: Patient is seated without any agitated behavior. Constricted, improving mildly. Speech: Patient's speech is fluent and nonpressured. Soft tone. [place], improving mildly Mood/Affect: Patient reports their mood is anxious yet improving midlly, affect is congruent and constricted. Suicidality/Homicidality: Patient denies having any homicidal ideation intent or plan. And admits to suicidal thoughts however no intent or plan. Perceptions: Patient denies any visual hallucinations and denies any auditory hallucinations Though content/process: There is no evidence of any delusional thought content and thought process is linear and goal-directed. Memory and concentration: AOX3, grossly intact for the purposes of this session Judgment and insight: poor, improving mildly IMPRESSIONS: Major depressive disorder, recurrent, severe without psychotic features Anxiety disorder unspecified Cannabis use disorder mild Plan: -Patient continues to meet criteria for inpatient psychiatric admission for symptom stabilization and safety. Patient has signed [adult voluntary form and] [medication consent] and was placed in patient's chart. -Medications: Cymbalta 60 mg daily for mood/anxiety with plan to increase to 90 mg daily on wednesday, Remeron 15 mg daily at bedtime for sleep/mood/appetite. vistaril prn for anxiety -When necessary Ativan and Haldol for agitation/aggression. -NRT - not needed as patient does not smoke -SW on board for discharge planning. Encouraged the patient to participate in milieu. continue to follow along to see if patient improves over the weekend.
[2021-10-07] MEDS: HYDROCORTISONE 1% CREAM 30 GM TUBE TOPICAL PRN (17:22)
[2021-10-07] MEDS: LITHIUM CARBONATE 300 MG CAP PO SCH (20:51)
[2021-10-07] MEDS: MIRTAZAPINE 15 MG TAB PO SCH (20:52)
[2021-10-08] MEDS: hydrOXYzine pamoate 25 MG CAP PO SCH ×2 (08:55→22:46)
[2021-10-08] MEDS: LITHIUM CARBONATE 300 MG CAP PO SCH ×2 (08:55→22:46)
[2021-10-08] MEDS: DULoxetine HCL 60 MG CAPSULE.DR PO SCH ×2 (08:56→22:46)
--- NOTE | 2021-10-08 09:49 | P.PN ---
Progress Note - Text Progress Note Date: 10/08/21 Interval History: Patient was seen in the hallways and was directable and agreeable to speak with blurb writer in the office. Patient just finished taking her morning medications. She appeared to have an improvement in her affect today and was not tearful during the interview. She claims that she is feeling more optimistic and better today. She claims that she was able to speak with her fianc over the phone and spoke about hopefully planning their wedding within the next year or so. She states that she has been feeling some improvement with the medications however is continuing to report some anxiety. She states that she has been trying to go to groups and participate as best she can. She continues to have a soft tone of voice. She appears to have an improvement in her hygiene and grooming today. She claims that she was able to sleep fairly last night and has a fair appetite. At this time patient denies any homical ideations, intent or plan. She claims that today she does not have any suicidal thoughts, no intent or plan. Patient denies any auditory, visual hallucinations and denies any paranoia or delusions. Patient denies any side effects from the medications and has been compliant with meds. Mental Status Exam: General Appearance: Patient appears to be thin, stated age is alert, directable, and attempts to cooperate. Patient appears to have improving hygiene and grooming. Behavior: Patient is seated without any agitated behavior. More cooperative. Speech: Patient's speech is fluent and nonpressured. Soft tone, improving mildly Mood/Affect: Patient reports their mood is anxious yet improving midlly, affect is congruent Suicidality/Homicidality: Patient denies having any homicidal ideation intent or plan. Denies any suicidal thoughts today, no intent or plan. Perceptions: Patient denies any visual hallucinations and denies any auditory hallucinations Though content/process: There is no evidence of any delusional thought content and thought process is linear and goal-directed. Memory and concentration: AOX3, grossly intact for the purposes of this session Judgment and insight: improving mildly IMPRESSIONS: Major depressive disorder, recurrent, severe without psychotic features Anxiety disorder unspecified Cannabis use disorder mild Plan: -Patient continues to meet criteria for inpatient psychiatric admission for symptom stabilization and safety. Patient has signed [adult voluntary form and] [medication consent] and was placed in patient's chart. -Medications: Continue with Cymbalta 60 mg bid for mood/anxiety, Remeron 15 mg daily at bedtime for sleep/mood/appetite. vistaril increased to 50 mg twice a day scheduled for anxiety. Continue with lithium 300 mg twice a day for suicidal thoughts/mood adjunct. -ordered [place] level tomorrow morning. -When necessary Ativan and Haldol for agitation/aggression. -NRT - not needed as patient does not smoke -SW on board for discharge planning. Encouraged the patient to participate in milieu. likely discharge tomorrow if patient is doing well.
[2021-10-08 18:16] VITALS: BP 115/59; PULSE 65; RESP 16
[2021-10-08] MEDS: MIRTAZAPINE 15 MG TAB PO SCH (22:46)
[2021-10-09] MEDS: LITHIUM CARBONATE 300 MG CAP PO SCH (07:40)
[2021-10-09] MEDS: DULoxetine HCL 60 MG CAPSULE.DR PO SCH (07:41)
[2021-10-09] MEDS: hydrOXYzine pamoate 25 MG CAP PO SCH (07:41)
--- NOTE | 2021-10-09 13:35 | P.DS ---
Providers Date of admission: 10/01/21 05:29 she was discharged in stable condition. With mood improved . discharge: recurrent major depression. follow up as arranged in the treatment plan Expected date of discharge: 10/09/21 Attending physician: Willam Jacobs MD Consults: 10/01/21 05:35 Consult Physician Routine Consulting Provider: Jaqueline Johnston Consult Reason/Comments: For H & P for Medical Follow Up Do you want consulting provider notified?: Yes, Notify in am Primary care physician: Jaqueline Johnston Patient Condition at Discharge: Good Plan - Discharge Summary Discharge Rx Participant: No New Discharge Prescriptions: New DULoxetine HCL [Cymbalta] 60 mg PO BID #60 Mirtazapine [Remeron] 15 mg PO HS #30 tab hydrOXYzine pamoate [Vistaril] 50 mg PO BID #60 cap [place] Carbonate 300 mg PO BID #60 cap Continue busPIRone HCl [Buspar] 10 mg PO BID FLUoxetine HCL [PROzac] 40 mg PO HS Ethinyl Estradiol/Drospirenone [Leslye 28 Tablet] 1 tab PO DAILY ALPRAZolam [Xanax] 0.25 mg PO BID PRN PRN Reason: Anxiety Discharge Medication List ALPRAZolam [Xanax] 0.25 mg PO BID PRN 10/01/21 [History] Ethinyl Estradiol/Drospirenone [Leslye 28 Tablet] 1 tab PO DAILY 10/01/21 [History] FLUoxetine HCL [PROzac] 40 mg PO HS 10/01/21 [History] busPIRone HCl [Buspar] 10 mg PO BID 10/01/21 [History] DULoxetine HCL [Cymbalta] 60 mg PO BID #60 10/09/21 [Rx] [place] Carbonate 300 mg PO BID #60 cap 10/09/21 [Rx] Mirtazapine [Remeron] 15 mg PO HS #30 tab 10/09/21 [Rx] hydrOXYzine pamoate [Vistaril] 50 mg PO BID #60 cap 10/09/21 [Rx] Follow up Appointment(s)/Referral(s): Esther Ivan [Outside] - 10/13/21 9:30 am (Riya ) Jaqueline Johnston MD [Primary Care Provider] - 1-2 days Patient Instructions/Handouts: Depression (DC), Anxiety (ED) Discharge Disposition: HOME SELF-CARE
== END 2021-10-09 14:55 | disposition home or self-care (01) | DRG 885 ==
LOC: SUPCPDRO 00:55 → EC 00:55 → 3MHU 05:29
PROVIDERS: ADMIT Psychiatry & Neurology Psychiatry; ATTEND Psychiatry & Neurology Psychiatry
DX: F33.2 Major depressive disorder, recurrent severe without psychotic features (principal); F41.0 Panic disorder [episodic paroxysmal anxiety]; T42.4X2A Poisoning by benzodiazepines, intentional self-harm, initial encounter; Z81.8 Family history of other mental and behavioral disorders; F17.290 Nicotine dependence, other tobacco product, uncomplicated; F13.10 Sedative, hypnotic or anxiolytic abuse, uncomplicated; F12.10 Cannabis abuse, uncomplicated; Z20.822 Contact with and (suspected) exposure to COVID-19; Z83.3 Family history of diabetes mellitus; Z79.899 Other long term (current) drug therapy; Z82.5 Family history of asthma and other chronic lower respiratory diseases
CPT/HCPCS: 36415; 80053; 80143; 80178; 80306; 81003; 81025; 83036; 84443; 85025; 87635; 99285

== ENCOUNTER → 2023-01-20 | Outpatient (CLI) | payer OTHER ==
--- NOTE | 2023-01-20 09:02 | USB ---
Reason for Exam: Clinical finding. Technique: Method: Whole Breast Handheld. Findings: The whole breast of the right breast, the axilla of the right breast and the retroareolar of the right breast were scanned. A complete US of all four quadrants of the breast, axilla, and retro-areolar region were reviewed. No solid or cystic masses are identified. Mild duct ectasia is noted. The previous palpable site was at the 10:00 position. The patient reports resolution of the previous palpable abnormality and possibly with some residual bruising per the patient. No obvious bruising is apparent on the skin surface by the pelletizer. Overall Assessment: Negative, BI-RAD 1 Management: Screening Mammogram of both breasts at age 41. Unless there is a clinical indication to start sooner. Further clinical management for any suspicious palpable abnormality. If any palpable area recurs, the area can be rescanned. Patient should continue monthly self breast exams. Results were given to the patient verbally at the time of exam. Electronically signed and approved by: Karo Ford M.D. Radiologist
== END | disposition home or self-care (01) ==
LOC: RADUSWWP 08:21
PROVIDERS: ATTEND Internal Medicine Geriatric Medicine
DX: N63.10 Unspecified lump in the right breast, unspecified quadrant (principal)

== ENCOUNTER 2024-05-21 15:23 | Emergency (ER) | payer OTHER ==
--- NOTE | 2024-05-21 15:51 | ED ---
Nausea/Vomiting/Diarrhea HPI - General Source: patient, RN notes reviewed Mode of arrival: ambulatory Limitations: no limitations <Rima White - Last Filed: 05/21/24 15:51> <Meg Pack - Last Filed: 05/21/24 18:03> - General Chief complaint: Nausea/Vomiting/Diarrhea Stated complaint: Vomiting, fever Time Seen by Provider: 05/21/24 15:51 - History of Present Illness Initial comments: Quick note: 24-year-old female presented to ER with chief complaint of nausea and vomiting. Patient states symptoms started around 2 PM after eating [employer]. Patient also is reporting epigastric abdominal pain and diarrhea. She reports chills. (Rima White) 24-year-old female presents emergency department chief complaint of lower abdominal cramping and pain, nausea, vomiting, and diarrhea that occurred this afternoon at 1400. States that her symptoms occurred after eating lunch at [facility] [employer]. She is reporting chills with no recorded fevers. Denies hematemesis, hematochezia, melena. Denies previous surgical abdominal history. She denies cough, rhinorrhea, congestion, shortness of breath, difficulty breathing, chest pain. (Meg Pack) - Related Data Home Medications Medication Instructions Recorded Confirmed ALPRAZolam [Xanax] 0.25 mg PO BID PRN 10/01/21 10/01/21 Ethinyl Estradiol/Drospirenone 1 tab PO DAILY 10/01/21 10/01/21 [Leslye 28 Tablet] FLUoxetine HCL [PROzac] 40 mg PO HS 10/01/21 10/01/21 busPIRone HCl [Buspar] 10 mg PO BID 10/01/21 10/01/21 Previous Rx's Medication Instructions Recorded DULoxetine HCL [Cymbalta] 60 mg PO BID #60 10/09/21 [place] Carbonate 300 mg PO BID #60 cap 10/09/21 Mirtazapine [Remeron] 15 mg PO HS #30 tab 10/09/21 hydrOXYzine pamoate [Vistaril] 50 mg PO BID #60 cap 10/09/21 Allergies Allergy/AdvReac Type Severity Reaction Status Date / Time No Known Allergies Allergy Verified 05/21/24 15:29 Review of Systems ROS Other: All systems not noted in ROS Statement are negative. <Rima White - Last Filed: 05/21/24 15:51> ROS Other: All systems not noted in ROS Statement are negative. <Meg Pack - Last Filed: 05/21/24 18:03> ROS Statement: Those systems with pertinent positive or pertinent negative responses have been documented in the HPI. Past Medical History Past Medical History: No Reported History History of Any Multi-Drug Resistant Organisms: None Reported Past Surgical History: No Surgical Hx Reported Past Psychological History: Anxiety, Depression, Panic Disorder Smoking Status: Current some day smoker Past Alcohol Use History: None Reported Past Drug Use History: None Reported <Rima White - Last Filed: 05/21/24 15:51> General Exam Limitations: no limitations <Rima White - Last Filed: 05/21/24 15:51> General appearance: alert, in no apparent distress ENT exam: Present: normal exam, mucous membranes moist Neck exam: Present: normal inspection. Absent: tenderness, meningismus, lymphadenopathy Respiratory exam: Present: normal lung sounds bilaterally. Absent: respiratory distress, wheezes, rales, rhonchi, stridor Cardiovascular Exam: Present: regular rate, normal rhythm, normal heart sounds. Absent: systolic murmur, diastolic murmur, rubs, gallop, clicks GI/Abdominal exam: Present: soft, tenderness (lower abdomen, epigastric), normal bowel sounds. Absent: distended, guarding, rebound, rigid Extremities exam: Present: normal inspection, full ROM, normal capillary refill. Absent: tenderness, pedal edema, joint swelling, calf tenderness Back exam: Present: normal inspection Skin exam: Present: warm, dry, intact, normal color. Absent: rash <Meg Pack - Last Filed: 05/21/24 18:03> - General Exam Comments Initial Comments: Visual Physical Exam Vital signs reviewed General: Well-appearing, nontoxic, no acute distress. Head: Normocephalic, atraumatic Eyes: PERRLA, EOMI ENT: Airway patent Chest: Nonlabored breathing Skin: No visual rash, normal skin tone Neuro: Alert and oriented 3 Musculoskeletal: No gross abnormalities (Rima White) Course Vital Signs 05/21/24 15:27 Temperature 97.4 F L Pulse Rate 73 Respiratory 16 Rate Blood Pressure 98/65 O2 Sat by Pulse 100 Oximetry Medical Decision Making <Rima White - Last Filed: 05/21/24 15:51> - Lab Data Result diagrams: 05/21/24 16:43 05/21/24 16:43 <Meg Pack - Last Filed: 05/21/24 18:03> - Medical Decision Making I performed the quick note portion of this chart. Electronically signed by Rima White PA-C (Rima White) Was pt. sent in by a medical professional or institution ([facility], COMPENSATION PROGRAMS MANAGER, urgent care, hospital, or alf...) When possible be specific @ -No Did you speak to anyone other than the patient for history (EMS, parent, family, police, friend...)? What history was obtained from this source @ -No Did you review nursing and triage notes (agree or disagree)? Why? @ -I reviewed and agree with nursing and triage notes Were old charts reviewed (outside hosp., previous admission, EMS record, old EKG, old radiological studies, urgent care reports/EKG's, alf records)? Report findings @ -No old charts were reviewed Differential Diagnosis (chest pain, altered mental status, abdominal pain women, abdominal pain men, vaginal bleeding, weakness, fever, dyspnea, syncope, headache, dizziness, GI bleed, back pain, seizure, CVA, palpatations, mental health, musculoskeletal)? @ -Differential Abdominal Pain Women: Appendicitis, Cholecystitis, diverticulosis, ischemic bowel, pancreatitis, hepatitis, UTI, gastroenteritis, AAA, incarcerated hernia, bowel obstruction, constipation, inflammatory bowel, hepatitis, peptic ulcer disease, splenic infarction, perforated viscus, vulvitis, ovarian torsion, PID, kidney stone, placenta abruption, this is not meant to be an all-inclusive list EKG interpreted by me (3pts min.). @ -Not obtained X-rays interpreted by me (1pt min.). @ -None CT interpreted by me (1pt min.). @ -None done U/S interpreted by me (1pt. min.). @ -None done What testing was considered but not performed or refused? (CT, X-rays, U/S, labs)? Why? @ -None What meds were considered but not given or refused? Why? @ -None Did you discuss the management of the patient with other professionals (professionals i.e. , PA, COMPENSATION PROGRAMS MANAGER, lab, RT, psych nurse, social and political studies professor, sql server bi developer, teacher, chief learning officer, case supervisor)? Give summary @ -No Was smoking cessation discussed for >3mins.? @ -No Was critical care preformed (if so, how long)? @ -No Were there social determinants of health that impacted care today? How? (Homelessness, low income, unemployed, alcoholism, drug addiction, transportation, low edu. Level, literacy, decrease access to med. care, longterm, rehab)? @ -No Was there de-escalation of care discussed even if they declined (Discuss DNR or withdrawal of care, Hospice)? DNR status @ -No What co-morbidities impacted this encounter? (DM, HTN, Smoking, COPD, CAD, Cancer, CVA, ARF, Chemo, Hep., AIDS, mental health diagnosis, sleep apnea, morbid obesity)? @ -None Was patient admitted / discharged? Hospital course, mention meds given and route, prescriptions, significant lab abnormalities, going to OR and other pertinent info. @ -discharged. 24-year-old female with nausea, vomiting, diarrhea. Patient was originally evaluated as a quick note the emergency department waiting room where laboratory studies were ordered. On my evaluation the patient she is resting comfortably no signs of acute distress. Vitals are stable. She states that she had an episode of emesis approximately 15 minutes before being brought back into one of the rooms. Patient has mild abdominal pain to palpation of the lower abdomen with no signs of rebound tenderness or rigidity. She will be symptomatically treated with IV fluids and antiemetics pending laboratory results. She is in agreement with this plan. CBC reveals mild leukocytosis 12.7, neutrophils 11, CMP unremarkable, amylase lipase within normal notes, urinalysis negative for signs of infection, hCG negative, Cepheid negative. On reevaluation, patient states that she is feeling markedly better has not had episodes of emesis after administration of antiemetic. Patient will be discharged home in stable condition with diagnosis of gastroenteritis and food poisoning. She also be prescribed a starter pack of Zofran emergency department to take as needed over the next few days for intermittent nausea. Recommend that she follow a liquid diet over the next 24 hours and slowly reintroducing foods. All questions answered at bedside and strict return prior discussed the patient she is verbalized understanding. Case discussed with Dr. García Undiagnosed new problem with uncertain prognosis? @ -No Drug Therapy requiring intensive monitoring for toxicity (Heparin, Nitro, Insulin, Cardizem)? @ -No Were any procedures done? @ -No Diagnosis/symptom? @ -gastroenteritis, food poisoning, acute nausea and vomiting Acute, or Chronic, or Acute on Chronic? @ -Acute Uncomplicated (without systemic symptoms) or Complicated (systemic symptoms)? @ -Uncomplicated Side effects of treatment? @ -No Exacerbation, Progression, or Severe Exacerbation? @ -No Poses a threat to life or bodily function? How? (Chest pain, USA, ID, pneumonia, PE, COPD, DKA, ARF, appy, cholecystitis, CVA, Diverticulitis, Homicidal, Suicid al, threat to staff... and all critical care pts) @ -No (Meg Pack) - Lab Data Lab Results 05/21/24 05/21/24 05/21/24 Range/Units 16:43 16:43 16:43 WBC 12.7 H (3.8-10.6) k/uL RBC 4.40 (3.80-5.40) m/uL Hgb 13.4 (11.4-16.0) gm/dL Hct 40.2 (34.0-46.0) % MCV 91.4 (80.0-100.0) fL MCH 30.5 (25.0-35.0) pg MCHC 33.4 (31.0-37.0) g/dL RDW 12.3 (11.5-15.5) % Plt Count 235 (150-450) k/uL MPV 7.1 Neutrophils % 87 % Lymphocytes % 9 % Monocytes % 3 % Eosinophils % 0 % Basophils % 0 % Neutrophils # 11.0 H (1.3-7.7) k/uL Lymphocytes # 1.1 (1.0-4.8) k/uL Monocytes # 0.4 (0-1.0) k/uL Eosinophils # 0.0 (0-0.7) k/uL Basophils # 0.0 (0-0.2) k/uL Sodium 141 (137-145) mmol/L Potassium 4.3 (3.5-5.1) mmol/L Chloride 106 (98-107) mmol/L Carbon Dioxide 25 (22-30) mmol/L Anion Gap 10 mmol/L BUN 10 (7-17) mg/dL Creatinine 0.76 (0.52-1.04) mg/dL Est GFR (CKD-EPI)AfAm >90 (>60 ml/min/1.73 sqM) Est GFR (CKD-EPI)NonAf >90 (>60 ml/min/1.73 sqM) Glucose 129 H (74-99) mg/dL Plasma Lactic Acid Bo 1.1 (0.7-2.0) mmol/L Calcium 9.6 (8.4-10.2) mg/dL Total Bilirubin 0.4 (0.2-1.3) mg/dL AST 26 (14-36) U/L ALT 25 (4-34) U/L Alkaline Phosphatase 39 (38-126) U/L Total Protein 8.0 (6.3-8.2) g/dL Albumin 4.5 (3.5-5.0) g/dL Amylase 56 (30-110) U/L Lipase 68 (23-300) U/L Urine Color Urine Appearance (Clear) Urine pH (5.0-8.0) Ur Specific [place] (1.001-1.035) Urine Protein (Negative) Urine Glucose (UA) (Negative) Urine Ketones (Negative) Urine Blood (Negative) Urine Nitrite (Negative) Urine Bilirubin (Negative) Urine Urobilinogen (<2.0) mg/dL Ur Leukocyte Esterase (Negative) Urine RBC (0-5) /hpf Urine WBC (0-5) /hpf Ur Squamous Epith Cells (0-4) /hpf Urine Mucus (None) /hpf Urine HCG, Qual (Not Detectd) Influenza Type A (PCR) (Not Detectd) Influenza Type B (PCR) (Not Detectd) RSV (PCR) (Not Detectd) SARS-CoV-2 (PCR) (Not Detectd) 05/21/24 05/21/24 05/21/24 Range/Units 16:43 17:41 17:41 WBC (3.8-10.6) k/uL RBC (3.80-5.40) m/uL Hgb (11.4-16.0) gm/dL Hct (34.0-46.0) % MCV (80.0-100.0) fL MCH (25.0-35.0) pg MCHC (31.0-37.0) g/dL RDW (11.5-15.5) % Plt Count (150-450) k/uL MPV Neutrophils % % Lymphocytes % % Monocytes % % Eosinophils % % Basophils % % Neutrophils # (1.3-7.7) k/uL Lymphocytes # (1.0-4.8) k/uL Monocytes # (0-1.0) k/uL Eosinophils # (0-0.7) k/uL Basophils # (0-0.2) k/uL Sodium (137-145) mmol/L Potassium (3.5-5.1) mmol/L Chloride (98-107) mmol/L Carbon Dioxide (22-30) mmol/L Anion Gap mmol/L BUN (7-17) mg/dL Creatinine (0.52-1.04) mg/dL Est GFR (CKD-EPI)AfAm (>60 ml/min/1.73 sqM) Est GFR (CKD-EPI)NonAf (>60 ml/min/1.73 sqM) Glucose (74-99) mg/dL Plasma Lactic Acid Bo (0.7-2.0) mmol/L Calcium (8.4-10.2) mg/dL Total Bilirubin (0.2-1.3) mg/dL AST (14-36) U/L ALT (4-34) U/L Alkaline Phosphatase (38-126) U/L Total Protein (6.3-8.2) g/dL Albumin (3.5-5.0) g/dL Amylase (30-110) U/L Lipase (23-300) U/L Urine Color Yellow Urine Appearance Clear (Clear) Urine pH 6.5 (5.0-8.0) Ur Specific [place] 1.016 (1.001-1.035) Urine Protein Negative (Negative) Urine Glucose (UA) Negative (Negative) Urine Ketones Negative (Negative) Urine Blood Negative (Negative) Urine Nitrite Negative (Negative) Urine Bilirubin Negative (Negative) Urine Urobilinogen <2.0 (<2.0) mg/dL Ur Leukocyte Esterase Trace H (Negative) Urine RBC <1 (0-5) /hpf Urine WBC 1 (0-5) /hpf Ur Squamous Epith Cells 2 (0-4) /hpf Urine Mucus Few H (None) /hpf Urine HCG, Qual Not Detected (Not Detectd) Influenza Type A (PCR) Not Detected (Not Detectd) Influenza Type B (PCR) Not Detected (Not Detectd) RSV (PCR) Not Detected (Not Detectd) SARS-CoV-2 (PCR) Not Detected (Not Detectd) Disposition <Rima White - Last Filed: 05/21/24 15:51> Is patient prescribed a controlled substance at d/c from ED?: No Time of Disposition: 17:59 <Meg Pack - Last Filed: 05/21/24 18:03> Clinical Impression: Food poisoning, Gastroenteritis Disposition: HOME SELF-CARE Condition: Good Instructions (If sedation given, give patient instructions): Acute Nausea and Vomiting (ED) Additional Instructions: Return the emergency department any new or worsening symptoms. Recommend that you follow liquid diet over the next 24 hours and slowly reintroduce foods following the 'BRAT' diet containing bananas, rice, applesauce, toast. Use Zofran as needed for intermittent nausea. Increase oral hydration. Referrals: Jaqueline Johnston MD [Primary Care Provider] - 1-2 days
[2024-05-21] MEDS: SODIUM CHLORIDE 0.9% 1,000 ML IV STA (16:47)
[2024-05-21] MEDS: ONDANSETRON 4 MG/2 ML VIAL IVP STA (16:53)
[2024-05-21 16:58] LABS: Basophils % (A) 0 %; Eosinophils % (A) 0 %; HCT 40.2 % (34.0-46.0); HGB 13.4 gm/dL (11.4-16.0); Lymphocytes # (A) 1.1 k/uL (1.0-4.8); Lymphocytes % (A) 9 %; MCH 30.5 pg (25.0-35.0); MCHC 33.4 g/dL (31.0-37.0); MCV 91.4 fL (80.0-100.0); Mean Platelet Volume 7.1; Monocytes # (A) 0.4 k/uL (0-1.0); Monocytes % (A) 3 %; Neutrophils % (A) 87 %; Platelet Count 235 k/uL (150-450); RDW 12.3 % (11.5-15.5); WBC 12.7 k/uL (3.8-10.6)
[2024-05-21 17:14] LABS: ALT 25 U/L (4-34); AST 26 U/L (14-36); African American GFR (CKD) >90 (>60 ml/min/1.73 sqM); Albumin 4.5 g/dL (3.5-5.0); Alkaline Phosphatase 39 U/L (38-126); Amylase 56 U/L (30-110); Anion Gap 10 mmol/L; Blood Urea Nitrogen 10 mg/dL (7-17); Calcium 9.6 mg/dL (8.4-10.2); Carbon Dioxide 25 mmol/L (22-30); Chloride 106 mmol/L (98-107); Glucose 129 mg/dL (74-99); Lipase 68 U/L (23-300); Non-African American GFR(CKD) >90 (>60 ml/min/1.73 sqM); Potassium 4.3 mmol/L (3.5-5.1); Sodium 141 mmol/L (137-145); Total Bilirubin 0.4 mg/dL (0.2-1.3)
[2024-05-21 17:48] LABS: Appearance,Urine Clear (Clear); Bilirubin,Urine Negative (Negative); Blood,Urine Negative (Negative); Color,Urine Yellow; Glucose,Urine (UA) Negative (Negative); Ketones,Urine Negative (Negative); Leukocyte Esterase,Urine Trace (Negative); Mucus,Urine Few /hpf; Nitrite,Urine Negative (Negative); PH, Urine 6.5 (5.0-8.0); Protein,Urine Negative (Negative); RBC,Urine <1 /hpf (0-5); Specific Gravity,Urine 1.016 (1.001-1.035); Squamous Epithelial Cell,Urine 2 /hpf (0-4); Urobilinogen,Urine <2.0 mg/dL (<2.0); WBC,Urine 1 /hpf (0-5)
[2024-05-21] MEDS: ONDANSETRON 4 MG ODT STARTER PACK 2 TAB BTL PO STA (18:15)
[2024-05-21 18:25] VITALS: BP 97/61; PULSE 68; RESP 18; TEMP 98.4
== END 2024-05-21 18:59 | disposition home or self-care (01) ==
LOC: EC 15:23
CPT/HCPCS: 36415; 80053; 81001; 81025; 82150; 83605; 83690; 85025; 87636; 96361; 96374; 99284